=== PATIENT | female | born 1970 | race African-American/Black ===

== ENCOUNTER 2019-04-03 15:07 | Inpatient (IN) | payer OTHER ==
--- NOTE | 2019-04-03 16:04 | BHS.RME ---
Substance Use & Tx History - Substance Use History Alcohol Substance amount: 2 liters Gin, beer 24 oz 6 pack Frequency of use: More than 3 times per week Date of Last Use: 04/02/19 Cocaine (Crack) Substance amount: $200 Frequency of use: Daily Substance route: Smoking Date of Last Use: 03/28/19 Physical/Psych/Mental Status - Behavior Eye Contact: Normal - Cooperativeness Cooperativeness: Cooperative - Thinking Thought Processes: Tight Thought content: Future oriented - Physical Health Problems Is patient presently having any pain?: No Does patient presently have any injuries (include location): No CIWA Headache: 0-None Present (CIWA total 6)
[2019-04-03 17:03] VITALS: BMI 26.6
--- NOTE | 2019-04-03 17:45 | HP ---
CIWA Score Nausea/Vomitin-Mild Nausea/No Vomiting Muscle Tremors: None Anxiety: 1-Mildly Anxious Agitation: 1-Slight > Activity Paroxysmal Sweats: No Perspiration Orientation: 0-Oriented Tacttile Disturbances: 0-None Auditory Disturbances: 0-None Visual Disturbances: 0-None Headache: 3-Moderate CIWA-Ar Total Score: 6 - Admission Criteria OASAS Guidelines: Admission for Medically Managed Detox: Requires at least one of the followin. CIWA greater than 12 2. Seizures within the past 24 hours 3. Delirium tremens within the past 24 hours 4. Hallucinations within the past 24 hours 5. Acute intervention needed for co occurring medical disorder 6. Acute intervention needed for co occurring psychiatric disorder 7. Severe withdrawal that cannot be handled at a lower level of care (continued vomiting, continued diarrhea, abnormal vital signs) requiring intravenous medication and/or fluids 8. Patient presents the following: Acute intervention needed for co-occurring med or psych disorder (HIV +, Bipolar/Depression) Admission Criteria Met: Admission criteria met Admitting History and Physical - Past Medical History ...: No - Smoking History Smoking history: Current every day smoker Have you smoked in the past 12 months: Yes Aproximately how many cigarettes per day: 6 Admission ROS S - [facility] Chief Complaint: "Here because I'm tired of drinking" Allergies/Adverse Reactions: Allergies Allergy/AdvReac Type Severity Reaction Status Date / Time Penicillins Allergy Intermediate Hives Verified 04/03/19 16:59 History of Present Illness: 48 yo presents w/ hx alcohol and crack use disorder seeking detox. States current episode of alcohol relapse x 2 weeks daily w/ 6 pk beer w/ hard liquor alcohol. Heaviest drink this weekend. Last drink Saturday (04/01/19) Cocaine use states relapsed x a few months ago. Smokes. Last use Saturday () Nicotine use. 6 cig/day. Not interested in cessation. PMHx: HIV+ (off meds for one week); Seizure - last 6 months ago (states compliant); bronchitis; MHHx: Bipolar/ PTSD/Anxiety/Depression/Stress. Denies thoughts of harming self or others. Last saw a Provider 3 months ago. SHx: Housing: SRO; Unemployed; Denies legal issues. Search Terms: Gamaliel Meza, 1970 Search Date: 04/03/2019 06:52:23 PM The Drug Utilization Report below displays all of the controlled substance prescriptions, if any, that your patient has filled in the last twelve months. The information displayed on this report is compiled from pharmacy submissions to the Department, and accurately reflects the information as submitted by the pharmacies. This report was requested by: Adeola Juarez | Reference #: [id number] There are no results for the search terms that you entered. Exam Limitations: No Limitations - Ebola screening Have you traveled outside of the country in the last 21 days: No Have you had contact with anyone from an Ebola affected area: No Have you been sick,other than usual withdrawal symptoms: No Do you have a fever: No - Review of Systems Constitutional: Chills EENT: reports: Blurred Vision Respiratory: reports: SOB with Exertion (With stair climbing and walking a few blocks.) Cardiac: reports: No Symptoms Reported GI: reports: Blood Streaked Bowels (Intermittent last a few days ago), Nausea : reports: Incontinence (No burning, pain, blood) Musculoskeletal: reports: Joint Pain ((L) shoulder - pinched knee; Both knees - achy. "8") Integumentary: reports: No Symptoms Reported Neuro: reports: Headache ((L) nondenominational- throbbing "6-7":), Seizure Endocrine: reports: Increased Thirst Hematology: reports: Anemia (HIV+) Psychiatric: reports: Judgement Intact, Orientated x3, Agitated, Anxious, Depressed (Denies thoughts of harming self or others) Patient History - Patient Medical History Hx Asthma: Yes Hx Chronic Obstructive Pulmonary Disease (COPD): No Hx Cardiac Disorders: No Hx Hypertension: No Hx Seizures: Yes (6MNTHS) Hx Diabetes: No Hx Gastrointestinal Disorders: No Hx Genitourinary Disorders: No Hx Sexually Transmitted Disorders: Yes (HIV POS/ GENITAL WARTS) Hx Renal Disease (ESRD): No Hx Depression: Yes Hx Suicide Attempt: No Hx Schizophrenia: No - Patient Surgical History Past Surgical History: Yes Hx Neurologic Surgery: No Hx Cataract Extraction: No Hx Cardiac Surgery: No Hx Lung Surgery: No Hx Breast Surgery: No Hx Breast Biopsy: No Hx Abdominal Surgery: Yes (Hysterectomy 2003) Hx Appendectomy: No Hx Cholecystectomy: No Hx Genitourinary Surgery: No Hx Section: No Hx Orthopedic Surgery: No Anesthesia Reaction: No - PPD History Previous Implant?: Yes Documented Results: Negative w/o proof Implanted On Prior R Admission?: No PPD to be Administered?: Yes - Reproductive History Patient is a Female of Child Bearing Age (11 -55 yrs old): Yes Last Menstrual Period: 02/11/03 (Hystercetony) Patient : No - Smoking Cessation Smoking history: Current every day smoker Have you smoked in the past 12 months: Yes Aproximately how many cigarettes per day: 6 Hx Chewing Tobacco Use: No Initiated information on smoking cessation: Yes 'Breaking Loose' booklet given: 04/03/19 - Substance & Tx. History Hx Alcohol Use: Yes Hx Substance Use: Yes Substance Use Type: Alcohol, Cocaine Hx Substance Use Treatment: Yes (detox, rehab, ) - Substances abused Alcohol Substance route: Oral Frequency: Daily Amount used: vodka- 1 gal/ beer- 6pk 24oz can Age of first use: 14 Date of last use: 04/02/19 Crack Substance route: Smoking Frequency: Daily Amount used: $200 Age of first use: 26 Date of last use: 04/01/19 Admission Physical Exam BHS - Vital Signs Vital Signs: Vital Signs - 24 hr 04/03/19 17:00 Temperature 97.6 F Pulse Rate 70 Respiratory 18 Rate Blood Pressure 124/79 - Physical General Appearance: Yes: Nourished, Mild Distress, Anxious HEENTM: Yes: Hearing grossly Normal, Normocephalic, Normal Voice, ALBERT, Pharynx Normal, Other (Dry mucous membranes) Respiratory: Yes: Lungs Clear, Normal Breath Sounds, No Respiratory Distress Neck: Yes: No masses,lesions,Nodules, Supple Breast: Yes: Breast Exam Deferred Cardiology: Yes: Regular Rhythm, Regular Rate, S1, S2 Abdominal: Yes: Normal Bowel Sounds, Non Tender, Soft Genitourinary: Yes: Incontinient Back: Yes: Normal Inspection Musculoskeletal: Yes: full range of Motion, Gait Steady Extremities: Yes: Normal Capillary Refill (Periph pulses +) Neurological: Yes: vendor management consultant II-XII NML intact, Fully Oriented, Alert, Motor Strength 5/5, Normal Mood/Affect Integumentary: Yes: Normal Color, Dry (Devreased skin turgor), Warm Lymphatic: Yes: Within Normal Limits - Diagnostic (1) Alcohol dependence with withdrawal, uncomplicated Current Visit: Yes Status: Acute (2) Cocaine dependence, uncomplicated Current Visit: Yes Status: Chronic (3) HIV (human immunodeficiency virus infection) Current Visit: Yes Status: Chronic Qualifiers: HIV symptom status: unspecified Qualified Code(s): B20 - Human immunodeficiency virus [HIV] disease (4) Seizure Current Visit: Yes Status: Chronic (5) Dehydration symptoms Current Visit: Yes Status: Acute (6) Nicotine dependence, unspecified, uncomplicated Current Visit: Yes Status: Chronic Qualifiers: Nicotine product type: cigarettes Qualified Code(s): F17.210 - Nicotine dependence, cigarettes, uncomplicated (7) Hx of bronchitis Current Visit: No Status: Chronic Cleared for Admission S - Detox or Rehab [facility] Level of Care: Medically Managed Detox Regimen/Protocol: Librium Claeared for Rehab Admission: No Breathalyzer - Breathalyzer Breathalyzer: 0 Urine Drug Screen - Test Device Lot number: [id number] Expiration date: 01/10/21 - Control Is test valid?: Yes - Results Drug screen NEGATIVE: No Urine drug screen results: RUDY-Cocaine Inpatient Rehab Admission - Rehab Decision to Admit Inpatient rehab admission?: No
[2019-04-03] MEDS ORDERED: BISMUTH SUBSALICYLATE 524 MG/30 ML UD PO PRN (19:27)
[2019-04-03] MEDS ORDERED: MAGNESIUM CITRATE 300 ML BOTTLE PO PRN (19:27)
[2019-04-03] MEDS ORDERED: MENTHOL/PHENOL 1 EACH UD MM PRN (19:27)
[2019-04-03] MEDS ORDERED: IBUPROFEN 400 MG TABLET (FP) PO PRN (19:27)
[2019-04-03] MEDS ORDERED: MAGNESIUM HYDROX 2400MG/30ML ORAL SUSPENSION 30 ML CUP PO PRN (19:27)
[2019-04-03] MEDS ORDERED: ACETAMINOPHEN 325 MG TABLET (FP) PO PRN ×2 (19:27)
[2019-04-03] MEDS ORDERED: METHOCARBAMOL 500 MG TABLET PO PRN (19:27)
[2019-04-03] MEDS ORDERED: NICOTINE POLACRILEX 2 MG GUM BUC PRN (19:27)
[2019-04-03] MEDS ORDERED: MAG HYDROX/AL HYDROX/SIMETH 30 ML UNIT-DOSE CUP PO PRN (19:27)
[2019-04-03] MEDS ORDERED: chlordiazePOXIDE HCL 10 MG CAPSULE PO PRN (19:32)
[2019-04-03] MEDS ORDERED: chlordiazePOXIDE 5 MG CAPSULE PO PRN ×3 (19:54→20:01)
[2019-04-03] MEDS ORDERED: chlordiazePOXIDE HCL 10 MG CAPSULE PO SCH (20:00)
[2019-04-03] MEDS: THIAMINE HCL 100 MG TABLET (FP) PO SCH (21:13)
[2019-04-03] MEDS: MELATONIN 5 MG TABLETS PO PRN (21:35)
[2019-04-03] MEDS ORDERED: chlordiazePOXIDE 5 MG CAPSULE PO SCH (22:00)
[2019-04-03] MEDS ORDERED: chlordiazePOXIDE 5 MG CAPSULE PO ONE (22:00)
[2019-04-03] MEDS: OXCARBAZEPINE 300 MG PO SCH (23:02)
[2019-04-03] MEDS: LEVETIRACETAM 500 MG PO SCH (23:02)
[2019-04-04] MEDS ORDERED: chlordiazePOXIDE HCL 25 MG CAPSULE PO SCH (05:00)
[2019-04-04] MEDS: chlordiazePOXIDE HCL 10 MG CAPSULE PO SCH ×3 (06:28→22:24)
[2019-04-04 09:39] LABS: HEMOGLOBIN 13.5 GM/dL (10.7-15.3); MCH 33.6 pg (25.7-33.7); MCHC 35.4 g/dl (32.0-36.0); MEAN CELL VOLUME 94.9 fl (80-96); MEAN PLT VOLUME 8.1 fl (7.5-11.1); PLATELET COUNT 224 K/MM3 (134-434); RBC 4.01 M/mm3 (3.60-5.2); RDW 13.1 % (11.6-15.6); WHITE BLOOD COUNT 4.6 K/mm3 (4.0-10.0)
[2019-04-04 09:48] LABS: ALBUMIN 3.3 g/dl (3.4-5.0); BILIRUBIN,TOTAL 0.4 mg/dL (0.2-1); BLOOD UREA NITROGEN 12.7 mg/dL (7-18); CALCIUM 8.9 mg/dL (8.5-10.1); CREATININE 0.8 mg/dL (0.55-1.3); POTASSIUM 3.8 mmol/L (3.5-5.1); TOT PROT 7.7 g/dl (6.4-8.2)
[2019-04-04] MEDS: OXCARBAZEPINE 300 MG PO SCH ×2 (10:33→22:23)
[2019-04-04] MEDS: NICOTINE 7 MG/24 HOURS TOPICAL PATCH TD SCH (10:33)
[2019-04-04] MEDS: PRENATAL VITAMINS W/ FOLIC ACID TABLET (FP) PO SCH (10:33)
[2019-04-04] MEDS: LEVETIRACETAM 500 MG PO SCH ×2 (10:33→22:24)
--- NOTE | 2019-04-04 10:35 | EKG ---
Test Reason : Blood Pressure : / mmHG Vent. Rate : 066 BPM Atrial Rate : 066 BPM P-R Int : 158 ms QRS Dur : 072 ms QT Int : 376 ms P-R-T Axes : 042 050 041 degrees QTc Int : 394 ms NORMAL SINUS RHYTHM NORMAL ECG NO PREVIOUS ECGS AVAILABLE Confirmed by ALLAN MORTENSEN MD ([id number]) on 04/04/2019 10:35:44 AM Referred By: Confirmed By:ALLAN MORTENSEN MD
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
--- NOTE | 2019-04-04 14:43 | PN ---
S CIWA - CIWA Score Nausea/Vomitin-No Nausea/No Vomiting Muscle Tremors: None Anxiety: 3 Agitation: 2 Paroxysmal Sweats: 3 Orientation: 0-Oriented Tacttile Disturbances: 0-None Auditory Disturbances: 0-None Visual Disturbances: 0-None Headache: 0-None Present CIWA-Ar Total Score: 8 BHS Progress Note (SOAP) Subjective: Anxious, Interrupted Sleep, Sweating, Poor Appetite. Objective: PATIENT A & O X 3, OBSERVED AMBULATING ON DETOX UNIT UNASSISTED. IN NO ACUTE DISTRESS. 04/04/19 14:39 Vital Signs Temperature 98.0 F 04/04/19 12:35 Pulse Rate 70 04/04/19 12:35 Respiratory Rate 16 04/04/19 12:35 Blood Pressure 115/70 04/04/19 12:35 O2 Sat by Pulse Oximetry (%) Laboratory Tests 04/04/19 04/04/19 04/04/19 07:00 07:00 07:00 WBC 4.6 RBC 4.01 Hgb 13.5 Hct 38.0 MCV 94.9 MCH 33.6 MCHC 35.4 RDW 13.1 Plt Count 224 MPV 8.1 Sodium 138 Potassium 3.8 Chloride 111 H Carbon Dioxide 24 Anion Gap 4 L BUN 12.7 Creatinine 0.8 Est GFR (CKD-EPI)AfAm 100.33 Est GFR (CKD-EPI)NonAf 86.57 Random Glucose 111 H Calcium 8.9 Total Bilirubin 0.4 AST 21 ALT 24 Alkaline Phosphatase 90 Total Protein 7.7 Albumin 3.3 L RPR Titer Nonreactive LABS NOTED. LEVETIRACETAM LEVEL PENDING. 04/04/19 14:40 Assessment: 04/04/19 14:40 WITHDRAWAL SYMPTOMS. Plan: CONTINUE DETOX. INCREASE DAILY ORAL WATER INTAKE. ENSURE ORDERED FOR CALORIC SUPPLEMENTATION.
[2019-04-04] MEDS ORDERED: hydrOXYzine PAMOATE 50 MG CAPSULE (FP) PO PRN ×2 (15:00→18:20)
[2019-04-04] MEDS: busPIRone HCL 10 MG TABLET (FP) PO SCH (22:24)
[2019-04-04] MEDS: THIAMINE HCL 100 MG TABLET (FP) PO SCH (22:24)
[2019-04-04] MEDS: QUEtiapine FUMARATE 200 MG TABLET PO SCH (22:24)
[2019-04-04] MEDS: DIVALPROEX SODIUM 250 MG TABLET E.C. PO SCH (22:25)
[2019-04-05] MEDS ORDERED: chlordiazePOXIDE 5 MG CAPSULE PO SCH (05:00)
[2019-04-05] MEDS: chlordiazePOXIDE 5 MG CAPSULE PO SCH ×3 (07:03→22:23)
[2019-04-05] MEDS: SERTRALINE HCL 50 MG TABLET (FP) PO SCH (13:54)
[2019-04-05] MEDS: busPIRone HCL 10 MG TABLET (FP) PO SCH ×2 (13:54→22:23)
[2019-04-05] MEDS: PRENATAL VITAMINS W/ FOLIC ACID TABLET (FP) PO SCH (13:54)
[2019-04-05] MEDS: OXCARBAZEPINE 300 MG PO SCH ×2 (13:55→22:23)
[2019-04-05] MEDS: NICOTINE 7 MG/24 HOURS TOPICAL PATCH TD SCH (13:56)
[2019-04-05] MEDS: LEVETIRACETAM 500 MG PO SCH ×2 (14:17→22:23)
[2019-04-05] MEDS: DIVALPROEX SODIUM 250 MG TABLET E.C. PO SCH ×2 (14:17→22:23)
--- NOTE | 2019-04-05 16:46 | PN ---
S CIWA - CIWA Score Nausea/Vomitin-No Nausea/No Vomiting Muscle Tremors: 2 Anxiety: 2 Agitation: 1-Slight > Activity Paroxysmal Sweats: 2 Orientation: 0-Oriented Tacttile Disturbances: 0-None Auditory Disturbances: 0-None Visual Disturbances: 0-None Headache: 0-None Present CIWA-Ar Total Score: 7 BHS Progress Note (SOAP) Subjective: Agitated, irritable Objective: 04/05/19 16:45 Last Vital Signs Temp Pulse Resp BP Pulse Ox 97.2 F L 78 18 112/64 04/05/19 12:36 04/05/19 12:36 04/05/19 12:36 04/05/19 12:36 Laboratory Tests 04/04/19 04/04/19 04/04/19 07:00 07:00 07:00 WBC 4.6 RBC 4.01 Hgb 13.5 Hct 38.0 MCV 94.9 MCH 33.6 MCHC 35.4 RDW 13.1 Plt Count 224 MPV 8.1 Sodium 138 Potassium 3.8 Chloride 111 H Carbon Dioxide 24 Anion Gap 4 L BUN 12.7 Creatinine 0.8 Est GFR (CKD-EPI)AfAm 100.33 Est GFR (CKD-EPI)NonAf 86.57 Random Glucose 111 H Calcium 8.9 Total Bilirubin 0.4 AST 21 ALT 24 Alkaline Phosphatase 90 Total Protein 7.7 Albumin 3.3 L Valproic Acid RPR Titer Nonreactive 04/05/19 05:40 WBC RBC Hgb Hct MCV MCH MCHC RDW Plt Count MPV Sodium Potassium Chloride Carbon Dioxide Anion Gap BUN Creatinine Est GFR (CKD-EPI)AfAm Est GFR (CKD-EPI)NonAf Random Glucose Calcium Total Bilirubin AST ALT Alkaline Phosphatase Total Protein Albumin Valproic Acid < 3.0 L RPR Titer Labs reviewed Assessment: 04/05/19 16:46 Withdrawal sxs Plan: Continue detox Encouraged PO water intake
[2019-04-05] MEDS: THIAMINE HCL 100 MG TABLET (FP) PO SCH (22:23)
[2019-04-05] MEDS: QUEtiapine FUMARATE 200 MG TABLET PO SCH (22:23)
[2019-04-06] MEDS ORDERED: chlordiazePOXIDE HCL 10 MG CAPSULE PO PRN
[2019-04-06] MEDS ORDERED: chlordiazePOXIDE HCL 10 MG CAPSULE PO SCH ×2 (10:00→22:00)
--- NOTE | 2019-04-06 10:52 | PN ---
S CIWA - CIWA Score Nausea/Vomitin-Mild Nausea/No Vomiting Muscle Tremors: 2 Anxiety: 1-Mildly Anxious Agitation: 1-Slight > Activity Paroxysmal Sweats: No Perspiration Orientation: 0-Oriented Tacttile Disturbances: 0-None Auditory Disturbances: 0-None Visual Disturbances: 0-None Headache: 1-Very Mild CIWA-Ar Total Score: 6 BHS Progress Note (SOAP) Subjective: pt admitted for alcohol detox- anticipate d/c tomorrow- would like to go to rehab h/o seizure d/o- low valproic acid level- pt was probably non compliant prior to admission, also on Keppra O: Vital Signs - 24 hr 04/05/19 04/05/19 04/05/19 12:36 17:05 20:46 Temperature 97.2 F L 97.7 F 97.5 F L Pulse Rate 78 78 68 Respiratory 18 18 18 Rate Blood Pressure 112/64 128/86 118/51 L 04/05/19 04/06/19 04/06/19 22:00 00:32 03:31 Temperature 98.8 F Pulse Rate 69 Respiratory 18 18 18 Rate Blood Pressure 102/50 L 04/06/19 06:41 Temperature Pulse Rate Respiratory 18 Rate Blood Pressure Laboratory Tests 04/03/19 04/04/19 04/04/19 17:01 07:00 07:00 WBC 4.6 RBC 4.01 Hgb 13.5 Hct 38.0 MCV 94.9 MCH 33.6 MCHC 35.4 RDW 13.1 Plt Count 224 MPV 8.1 Sodium 138 Potassium 3.8 Chloride 111 H Carbon Dioxide 24 Anion Gap 4 L BUN 12.7 Creatinine 0.8 Est GFR (CKD-EPI)AfAm 100.33 Est GFR (CKD-EPI)NonAf 86.57 Random Glucose 111 H Calcium 8.9 Total Bilirubin 0.4 AST 21 ALT 24 Alkaline Phosphatase 90 Total Protein 7.7 Albumin 3.3 L POC Urine HCG, Qual Negative Valproic Acid RPR Titer 04/04/19 04/05/19 07:00 05:40 WBC RBC Hgb Hct MCV MCH MCHC RDW Plt Count MPV Sodium Potassium Chloride Carbon Dioxide Anion Gap BUN Creatinine Est GFR (CKD-EPI)AfAm Est GFR (CKD-EPI)NonAf Random Glucose Calcium Total Bilirubin AST ALT Alkaline Phosphatase Total Protein Albumin POC Urine HCG, Qual Valproic Acid < 3.0 L RPR Titer Nonreactive a/p: continue alcohol detox- anticipate discharge tomorrow- would like to go to rehab here tomorrow pt has a PCP- has an appointment next month. If pt is discharged home may need meds to be sent to pharmacy continue seizure meds h/o HIV- not taking meds prior to admission here
[2019-04-06] MEDS: DIVALPROEX SODIUM 250 MG TABLET E.C. PO SCH ×2 (10:55→22:02)
[2019-04-06] MEDS: NICOTINE 7 MG/24 HOURS TOPICAL PATCH TD SCH (10:55)
[2019-04-06] MEDS: OXCARBAZEPINE 300 MG PO SCH ×2 (10:55→22:02)
[2019-04-06] MEDS: LEVETIRACETAM 500 MG PO SCH ×2 (10:55→22:02)
[2019-04-06] MEDS: PRENATAL VITAMINS W/ FOLIC ACID TABLET (FP) PO SCH (10:55)
[2019-04-06] MEDS: busPIRone HCL 10 MG TABLET (FP) PO SCH ×2 (10:55→22:02)
[2019-04-06] MEDS: SERTRALINE HCL 50 MG TABLET (FP) PO SCH (10:55)
[2019-04-06] MEDS: chlordiazePOXIDE 5 MG CAPSULE PO SCH ×2 (10:57→22:02)
[2019-04-06] MEDS ORDERED: chlordiazePOXIDE 5 MG CAPSULE PO PRN (20:02)
[2019-04-06] MEDS: MELATONIN 5 MG TABLETS PO PRN (22:02)
[2019-04-06] MEDS: QUEtiapine FUMARATE 200 MG TABLET PO SCH (22:02)
[2019-04-06] MEDS: THIAMINE HCL 100 MG TABLET (FP) PO SCH (22:02)
[2019-04-07] MEDS ORDERED: chlordiazePOXIDE 5 MG CAPSULE PO ONE (05:00)
[2019-04-07 09:52] VITALS: BP 100/63; PULSE 87; TEMP 95.9
--- NOTE | 2019-04-07 10:01 | PN ---
[facility] CIWA - CIWA Score Nausea/Vomitin-No Nausea/No Vomiting Muscle Tremors: None Anxiety: 1-Mildly Anxious Agitation: 0-Normal Activity Paroxysmal Sweats: No Perspiration Orientation: 0-Oriented Tacttile Disturbances: 0-None Auditory Disturbances: 0-None Visual Disturbances: 0-None Headache: 0-None Present CIWA-Ar Total Score: 1 S Progress Note (SOAP) Subjective: alert,no complaint Objective: 04/07/19 09:59 alert,no complaint 04/07/19 09:59 Vital Signs Temperature 95.9 F L 04/07/19 08:58 Pulse Rate 87 04/07/19 08:58 Respiratory Rate 16 04/07/19 08:58 Blood Pressure 100/63 04/07/19 08:58 O2 Sat by Pulse Oximetry (%) Assessment: 04/07/19 10:00 detox completed,no withdrawal symptom Plan: stable for discharge,follow up with after care prgram as arrangement
--- NOTE | 2019-04-07 10:05 | DS ---
[facility] Detox Discharge Summary Admission Date: 04/03/19 Discharge Date: 04/07/19 - History Present History: Alcohol Dependence, Cocaine Dependence Additional Comments: alert,oriented x 3 heart normal hert sound,s1s2 lung clear no abdominal pain ambulation on the unit stable for discharge follow up with after care program as arrangement and medical provider time spending on discharge 30 mins Pertinent Past History: seizure hiv - Physical Exam Results Vital Signs: Vital Signs Temperature 95.9 F L 04/07/19 08:58 Pulse Rate 87 04/07/19 08:58 Respiratory Rate 16 04/07/19 08:58 Blood Pressure 100/63 04/07/19 08:58 O2 Sat by Pulse Oximetry (%) Pertinent Admission Physical Exam Findings: withdrawal sins and symptom Laboratory Last Values WBC 4.6 K/mm3 (4.0-10.0) 04/04/19 07:00 RBC 4.01 M/mm3 (3.60-5.2) 04/04/19 07:00 Hgb 13.5 GM/dL (10.7-15.3) 04/04/19 07:00 Hct 38.0 % (32.4-45.2) 04/04/19 07:00 MCV 94.9 fl (80-96) 04/04/19 07:00 MCH 33.6 pg (25.7-33.7) 04/04/19 07:00 MCHC 35.4 g/dl (32.0-36.0) 04/04/19 07:00 RDW 13.1 % (11.6-15.6) 04/04/19 07:00 Plt Count 224 K/MM3 (134-434) 04/04/19 07:00 MPV 8.1 fl (7.5-11.1) 04/04/19 07:00 Sodium 138 mmol/L (136-145) 04/04/19 07:00 Potassium 3.8 mmol/L (3.5-5.1) 04/04/19 07:00 Chloride 111 mmol/L (98-107) H 04/04/19 07:00 Carbon Dioxide 24 mmol/L (21-32) 04/04/19 07:00 Anion Gap 4 MMOL/L (8-16) L 04/04/19 07:00 BUN 12.7 mg/dL (7-18) 04/04/19 07:00 Creatinine 0.8 mg/dL (0.55-1.3) 04/04/19 07:00 Est GFR (CKD-EPI)AfAm 100.33 04/04/19 07:00 Est GFR (CKD-EPI)NonAf 86.57 04/04/19 07:00 Random Glucose 111 mg/dL (74-106) H 04/04/19 07:00 Calcium 8.9 mg/dL (8.5-10.1) 04/04/19 07:00 Total Bilirubin 0.4 mg/dL (0.2-1) 04/04/19 07:00 AST 21 U/L (15-37) 04/04/19 07:00 ALT 24 U/L (13-61) 04/04/19 07:00 Alkaline Phosphatase 90 U/L (45-117) 04/04/19 07:00 Total Protein 7.7 g/dl (6.4-8.2) 04/04/19 07:00 Albumin 3.3 g/dl (3.4-5.0) L 04/04/19 07:00 POC Urine HCG, Qual Negative 04/03/19 17:01 Valproic Acid < 3.0 ug/mL (50-100) L 04/05/19 05:40 Oxcarbazepine 5 ug/mL (10-35) L 04/04/19 07:00 Levetiracetam 7.7 MCG/ML (10.0-40.0) L 04/04/19 07:00 RPR Titer Nonreactive (NONREACTIVE) 04/04/19 07:00 Vital Signs Temperature 95.9 F L 04/07/19 08:58 Pulse Rate 87 04/07/19 08:58 Respiratory Rate 16 04/07/19 08:58 Blood Pressure 100/63 04/07/19 08:58 O2 Sat by Pulse Oximetry (%) - Treatment Hospital Course: Detox Protocol Followed, Detoxed Safely, Responded well, Discharged Condition Good Patient has Accepted a Rehab Referral to: declined - Medication Discharge Medications: Ambulatory Orders Bictegrav/Emtricit/Tenofov Ala [Biktarvy 50-200-25 mg Tablet] 1 each PO DAILY Buspirone HCl [Buspar -] 10 mg PO BID 04/03/19 Divalproex *ER* [Depakote *ER* -] 500 mg PO BID 04/03/19 Gabapentin 800 mg PO TID 04/03/19 Hydroxyzine HCl 100 mg PO DAILY PRN 04/03/19 Levetiracetam 500 mg PO BID 04/03/19 Mirtazapine [Remeron -] 30 mg PO HS 04/03/19 Oxcarbazepine [Trileptal] 300 mg PO BID 04/03/19 Quetiapine Fumarate [Seroquel -] 200 mg PO HS 04/03/19 Sertraline HCl [Zoloft] 100 mg PO DAILY 04/03/19 Valacyclovir HCl [Valtrex -] 1,000 mg PO DAILY 04/03/19 Divalproex Sodium [Depakote] 500 mg PO BID 04/04/19 - Diagnosis (1) Alcohol dependence with withdrawal, uncomplicated Current Visit: Yes Status: Acute (2) Bipolar disorder Current Visit: Yes Status: Chronic (3) Cocaine dependence, uncomplicated Current Visit: Yes Status: Chronic (4) HIV (human immunodeficiency virus infection) Current Visit: Yes Status: Chronic Qualifiers: HIV symptom status: unspecified Qualified Code(s): B20 - Human immunodeficiency virus [HIV] disease (5) Nicotine dependence, unspecified, uncomplicated Current Visit: Yes Status: Chronic Qualifiers: Nicotine product type: cigarettes Qualified Code(s): F17.210 - Nicotine dependence, cigarettes, uncomplicated (6) Seizure Current Visit: Yes Status: Chronic - AMA Did Patient Leave Against Medical Advice: No
== END 2019-04-07 09:53 | disposition home or self-care (01) | DRG 774 ==
LOC: YASAS 15:07 → Y6N 19:26
PROVIDERS: ADMIT Allergy & Immunology; ATTEND Allergy & Immunology
PROC: HZ2ZZZZ Detoxification Services for Substance Abuse Treatment (ICD-10-PCS; principal; 2019-04-03)
DX: F10.230 Alcohol dependence with withdrawal, uncomplicated (principal); F14.20 Cocaine dependence, uncomplicated; F17.210 Nicotine dependence, cigarettes, uncomplicated; F19.282 Other psychoactive substance dependence with psychoactive substance-induced sleep disorder; F19.24 Other psychoactive substance dependence with psychoactive substance-induced mood disorder; F31.9 Bipolar disorder, unspecified; F41.9 Anxiety disorder, unspecified; F43.10 Post-traumatic stress disorder, unspecified; Z21 Asymptomatic human immunodeficiency virus [HIV] infection status; G40.909 Epilepsy, unspecified, not intractable, without status epilepticus; E86.0 Dehydration; J45.909 Unspecified asthma, uncomplicated; B07.9 Viral wart, unspecified; A63.0 Anogenital (venereal) warts; Z87.09 Personal history of other diseases of the respiratory system; Z91.410 Personal history of adult physical and sexual abuse; Z90.710 Acquired absence of both cervix and uterus; Z88.0 Allergy status to penicillin
CPT/HCPCS: 36415; 80053; 80164; 80177; 80183; 81025; 85027; 86593; 93005; 93010

== ENCOUNTER 2020-04-22 17:53 | Inpatient (IN) | payer OTHER ==
[2020-04-22 18:29] VITALS: BMI 22.2
[2020-04-22] MEDS ORDERED: diazePAM 5 MG TABLET PO PRN (21:43)
[2020-04-22] MEDS ORDERED: ACETAMINOPHEN 325 MG TABLET (FP) PO PRN ×2 (21:44)
[2020-04-22] MEDS ORDERED: MAGNESIUM CITRATE 300 ML BOTTLE PO PRN (21:44)
[2020-04-22] MEDS ORDERED: BISMUTH SUBSALICYLATE 524 MG/30 ML UD PO PRN (21:44)
[2020-04-22] MEDS ORDERED: hydrOXYzine PAMOATE 25 MG CAPSULE (FP) PO PRN (21:44)
[2020-04-22] MEDS ORDERED: MENTHOL/PHENOL 1 EACH UD MM PRN (21:44)
[2020-04-22] MEDS ORDERED: MAGNESIUM HYDROX 2400MG/30ML ORAL SUSPENSION 30 ML CUP PO PRN (21:44)
[2020-04-22] MEDS ORDERED: IBUPROFEN 400 MG TABLET (FP) PO PRN (21:44)
[2020-04-22] MEDS ORDERED: NICOTINE POLACRILEX 2 MG GUM BUC PRN (21:44)
[2020-04-22] MEDS ORDERED: ONDANSETRON *ODT* 4 MG TABLET SL PRN (21:44)
[2020-04-22] MEDS ORDERED: METHOCARBAMOL 500 MG TABLET PO PRN (21:44)
[2020-04-22] MEDS ORDERED: MAG HYDROX/AL HYDROX/SIMETH 30 ML UNIT-DOSE CUP PO PRN (21:44)
[2020-04-22] MEDS ORDERED: LACTULOSE 20 GM/30 ML UDC (FOR ORAL USE ONLY) PO SCH (22:00)
[2020-04-22] MEDS ORDERED: PATIENT'S OWN MEDICATION (NON-FORMULARY) (Bictegrav/Emtricit/Tenofov Ala 1 EACH Tablet) PO SCH (22:00)
[2020-04-23] MEDS: MELATONIN 5 MG TABLETS PO SCH ×2 (00:49→22:34)
[2020-04-23] MEDS: DIVALPROEX SODIUM 250 MG TABLET E.C. PO SCH ×3 (00:50→22:34)
[2020-04-23] MEDS: THIAMINE HCL 100 MG TABLET (FP) PO SCH ×2 (00:50→22:34)
[2020-04-23] MEDS: levETIRAcetam 500 MG TABLET (FP) PO SCH ×3 (00:51→22:34)
[2020-04-23] MEDS: diazePAM 5 MG TABLET PO SCH ×5 (00:51→22:34)
[2020-04-23] MEDS: GABAPENTIN 400 MG CAPSULE PO SCH ×4 (00:53→22:35)
[2020-04-23 10:46] LABS: HEMATOCRIT 34.8 % (32.4-45.2); HEMOGLOBIN 12.4 GM/dL (10.7-15.3); MCH 34.6 pg (25.7-33.7); MCHC 35.8 g/dl (32.0-36.0); MEAN CELL VOLUME 96.8 fl (80-96); MEAN PLT VOLUME 7.3 fl (7.5-11.1); PLATELET COUNT 342 K/MM3 (134-434); RDW 13.2 % (11.6-15.6); WHITE BLOOD COUNT 8.3 K/mm3 (4.0-10.0)
[2020-04-23] MEDS: PRENATAL VITAMINS W/ FOLIC ACID TABLET (FP) PO SCH (11:06)
[2020-04-23 11:28] LABS: ALBUMIN 2.6 g/dl (3.4-5.0); CALCIUM 8.5 mg/dL (8.5-10.1)
[2020-04-23 11:29] LABS: BLOOD UREA NITROGEN 21.2 mg/dL (7-18)
[2020-04-23 11:31] LABS: CREATININE 0.8 mg/dL (0.55-1.3)
[2020-04-23 11:32] LABS: BILIRUBIN,TOTAL 0.5 mg/dL (0.2-1)
[2020-04-23 11:33] LABS: TOT PROT 6.7 g/dl (6.4-8.2)
[2020-04-23] MEDS: BICTEGRAV/EMTRICIT/TENOFOV (BIKTARVY) 50-200-25 MG TABLET PO SCH (14:18)
[2020-04-23] MEDS: FLUTICASONE PROP 0.05% 16 GM NASAL SPRAY NS SCH (14:18)
[2020-04-24] MEDS: diazePAM 5 MG TABLET PO SCH ×3 (05:46→22:51)
[2020-04-24] MEDS: GABAPENTIN 400 MG CAPSULE PO SCH ×3 (06:58→22:49)
[2020-04-24] MEDS: DIVALPROEX SODIUM 250 MG TABLET E.C. PO SCH ×2 (11:10→22:50)
[2020-04-24] MEDS: levETIRAcetam 500 MG TABLET (FP) PO SCH ×2 (11:10→22:49)
[2020-04-24] MEDS: FLUTICASONE PROP 0.05% 16 GM NASAL SPRAY NS SCH (11:10)
[2020-04-24] MEDS: PRENATAL VITAMINS W/ FOLIC ACID TABLET (FP) PO SCH (11:10)
[2020-04-24] MEDS: BICTEGRAV/EMTRICIT/TENOFOV (BIKTARVY) 50-200-25 MG TABLET PO SCH (11:10)
[2020-04-24] MEDS: busPIRone HCL 10 MG TABLET (FP) PO SCH (22:49)
[2020-04-24] MEDS: MELATONIN 5 MG TABLETS PO SCH (22:49)
[2020-04-24] MEDS: QUEtiapine FUMARATE 50 MG TABLET PO SCH (22:49)
[2020-04-24] MEDS: THIAMINE HCL 100 MG TABLET (FP) PO SCH (22:54)
[2020-04-25] MEDS: diazePAM 5 MG TABLET PO SCH ×2 (06:46→18:46)
[2020-04-25] MEDS: GABAPENTIN 400 MG CAPSULE PO SCH ×3 (06:46→22:40)
[2020-04-25] MEDS: FLUTICASONE PROP 0.05% 16 GM NASAL SPRAY NS SCH (10:17)
[2020-04-25] MEDS: DIVALPROEX SODIUM 250 MG TABLET E.C. PO SCH ×2 (10:18→22:40)
[2020-04-25] MEDS: levETIRAcetam 500 MG TABLET (FP) PO SCH ×2 (10:19→22:40)
[2020-04-25] MEDS: BICTEGRAV/EMTRICIT/TENOFOV (BIKTARVY) 50-200-25 MG TABLET PO SCH (10:19)
[2020-04-25] MEDS: busPIRone HCL 10 MG TABLET (FP) PO SCH ×3 (11:06→22:41)
[2020-04-25] MEDS: PRENATAL VITAMINS W/ FOLIC ACID TABLET (FP) PO SCH (11:06)
[2020-04-25] MEDS: CLOTRIMAZOLE 1% CREAM 15 GM TUBE TP PRN (19:41)
[2020-04-25] MEDS: QUEtiapine FUMARATE 50 MG TABLET PO SCH (22:40)
[2020-04-25] MEDS: THIAMINE HCL 100 MG TABLET (FP) PO SCH (22:41)
[2020-04-25] MEDS: MELATONIN 5 MG TABLETS PO SCH (23:31)
[2020-04-26] MEDS ORDERED: diazePAM 5 MG TABLET PO ONE (06:00)
[2020-04-26] MEDS: GABAPENTIN 400 MG CAPSULE PO SCH ×2 (06:42→13:35)
[2020-04-26] MEDS: CLOTRIMAZOLE 1% CREAM 15 GM TUBE TP PRN (06:44)
[2020-04-26] MEDS: DIVALPROEX SODIUM 250 MG TABLET E.C. PO SCH (09:57)
[2020-04-26] MEDS: PRENATAL VITAMINS W/ FOLIC ACID TABLET (FP) PO SCH (09:57)
[2020-04-26] MEDS: levETIRAcetam 500 MG TABLET (FP) PO SCH (09:58)
[2020-04-26] MEDS: busPIRone HCL 10 MG TABLET (FP) PO SCH (09:58)
[2020-04-26] MEDS: BICTEGRAV/EMTRICIT/TENOFOV (BIKTARVY) 50-200-25 MG TABLET PO SCH (09:58)
[2020-04-26] MEDS: FLUTICASONE PROP 0.05% 16 GM NASAL SPRAY NS SCH (09:59)
[2020-04-26 14:12] VITALS: BP 103/63; PULSE 82; TEMP 97.5
== END 2020-04-26 15:16 | disposition other institution (70) | DRG 775 ==
LOC: YASAS 17:53 → Y6N 23:39
PROVIDERS: ADMIT Allergy & Immunology; ATTEND Allergy & Immunology
PROC: HZ2ZZZZ Detoxification Services for Substance Abuse Treatment (ICD-10-PCS; principal; 2020-04-22)
DX: F10.230 Alcohol dependence with withdrawal, uncomplicated (principal); F17.210 Nicotine dependence, cigarettes, uncomplicated; F19.282 Other psychoactive substance dependence with psychoactive substance-induced sleep disorder; F19.24 Other psychoactive substance dependence with psychoactive substance-induced mood disorder; F31.81 Bipolar II disorder; F43.10 Post-traumatic stress disorder, unspecified; Z21 Asymptomatic human immunodeficiency virus [HIV] infection status; G40.909 Epilepsy, unspecified, not intractable, without status epilepticus; J45.909 Unspecified asthma, uncomplicated; Z62.810 Personal history of physical and sexual abuse in childhood; Z91.410 Personal history of adult physical and sexual abuse; Z88.0 Allergy status to penicillin
CPT/HCPCS: 36415; 80053; 80164; 81025; 85027; 86780; C9803; U0003

== ENCOUNTER 2020-04-26 15:47 | Inpatient (IN) | payer OTHER ==
[2020-04-26] MEDS ORDERED: hydrOXYzine PAMOATE 25 MG CAPSULE (FP) PO PRN (16:50)
[2020-04-26] MEDS ORDERED: MAGNESIUM HYDROX 2400MG/30ML ORAL SUSPENSION 30 ML CUP PO PRN (16:50)
[2020-04-26] MEDS ORDERED: MAG HYDROX/AL HYDROX/SIMETH 30 ML UNIT-DOSE CUP PO PRN (16:50)
[2020-04-26] MEDS ORDERED: MENTHOL/PHENOL 1 EACH UD MM PRN (16:50)
[2020-04-26] MEDS ORDERED: LOPERAMIDE HCL 2 MG CAPSULE PO PRN (16:50)
[2020-04-26] MEDS ORDERED: ACETAMINOPHEN 325 MG TABLET (FP) PO PRN (16:50)
[2020-04-26] MEDS ORDERED: P-EPHED 60MG/TRIPROLIDI 2.5MG TABLET PO PRN (16:50)
[2020-04-26] MEDS ORDERED: IBUPROFEN 400 MG TABLET (FP) PO PRN (16:50)
[2020-04-26] MEDS ORDERED: MAGNESIUM CITRATE 300 ML BOTTLE PO PRN (16:50)
[2020-04-26] MEDS ORDERED: NICOTINE POLACRILEX 2 MG GUM BUC PRN (16:50)
[2020-04-26] MEDS ORDERED: guaiFENesin 200 MG/10 ML 10 ML UNIT-DOSE CUPS PO PRN (16:50)
[2020-04-26] MEDS: busPIRone HCL 10 MG TABLET (FP) PO SCH (21:33)
[2020-04-26] MEDS: levETIRAcetam 500 MG TABLET (FP) PO SCH (21:33)
[2020-04-26] MEDS: GABAPENTIN 400 MG CAPSULE PO SCH (21:33)
[2020-04-26] MEDS: LACTULOSE 20 GM/30 ML UDC (FOR ORAL USE ONLY) PO SCH (21:35)
[2020-04-26] MEDS ORDERED: THIAMINE HCL 100 MG TABLET (FP) PO SCH (22:00)
[2020-04-26] MEDS ORDERED: QUEtiapine FUMARATE 200 MG TABLET PO SCH (22:00)
[2020-04-26] MEDS ORDERED: MELATONIN 5 MG TABLETS PO SCH (22:00)
[2020-04-26] MEDS ORDERED: MIRTAZAPINE 30 MG TABLET PO SCH (22:00)
[2020-04-26] MEDS ORDERED: QUEtiapine FUMARATE 25 MG TABLET PO SCH (22:00)
[2020-04-26] MEDS ORDERED: DIVALPROEX SODIUM 250 MG TABLET E.C. PO SCH (22:00)
[2020-04-27] MEDS ORDERED: MASKS NR ONE (05:04)
[2020-04-27] MEDS: GABAPENTIN 400 MG CAPSULE PO SCH ×2 (07:00→13:34)
[2020-04-27] MEDS: LACTULOSE 20 GM/30 ML UDC (FOR ORAL USE ONLY) PO SCH ×2 (07:00→13:35)
[2020-04-27 07:33] VITALS: BP 117/78; PULSE 84; TEMP 97.5
[2020-04-27] MEDS ORDERED: BICTEGRAV/EMTRICIT/TENOFOV (BIKTARVY) 50-200-25 MG TABLET PO SCH (10:00)
[2020-04-27] MEDS ORDERED: FLUTICASONE PROP 0.05% 16 GM NASAL SPRAY NS SCH (10:00)
[2020-04-27] MEDS ORDERED: PRENATAL VITAMINS W/ FOLIC ACID TABLET (FP) PO SCH (10:00)
[2020-04-27] MEDS ORDERED: NICOTINE 7 MG/24 HOURS TOPICAL PATCH TD SCH (10:00)
[2020-04-27] MEDS: levETIRAcetam 500 MG TABLET (FP) PO SCH (11:03)
[2020-04-27] MEDS: busPIRone HCL 10 MG TABLET (FP) PO SCH (11:57)
[2020-04-27] MEDS ORDERED: SIMETHICONE 80 MG TAB.CHEW (FP) PO PRN (12:41)
[2020-04-27] MEDS ORDERED: HYDROCORTISONE 1% TOPICAL CREAM 30 GM TUBE TP PRN (12:42)
[2020-04-27] MEDS ORDERED: DIVALPROEX SODIUM 500 MG TABLET E.C. PO SCH (12:45)
[2020-04-27] MEDS ORDERED: COLLOIDAL OATMEAL 1 BAR EACH TP PRN (12:48)
[2020-04-27] MEDS ORDERED: TOLNAFTATE 1% CREAM 15 GM TUBE TP SCH (13:15)
[2020-04-27] MEDS ORDERED: busPIRone HCL 10 MG TABLET (FP) PO SCH (14:00)
[2020-04-27] MEDS ORDERED: QUEtiapine FUMARATE 100 MG TABLET (FP) PO SCH (22:00)
== END 2020-04-27 13:45 | disposition left against medical advice (07) | DRG 770 ==
LOC: YASAS 15:47 → Y5N 15:52
PROVIDERS: ADMIT Allergy & Immunology; ATTEND Allergy & Immunology
PROC: HZ42ZZZ Group Counseling for Substance Abuse Treatment, Cognitive-Behavioral (ICD-10-PCS; principal; 2020-04-26)
DX: F10.20 Alcohol dependence, uncomplicated (principal); F14.20 Cocaine dependence, uncomplicated; F17.210 Nicotine dependence, cigarettes, uncomplicated; F19.282 Other psychoactive substance dependence with psychoactive substance-induced sleep disorder; F19.24 Other psychoactive substance dependence with psychoactive substance-induced mood disorder; F41.1 Generalized anxiety disorder; F43.10 Post-traumatic stress disorder, unspecified; Z21 Asymptomatic human immunodeficiency virus [HIV] infection status; G40.909 Epilepsy, unspecified, not intractable, without status epilepticus

== ENCOUNTER 2020-06-04 11:35 | Inpatient (IN) | payer OTHER ==
[2020-06-04 15:48] VITALS: BMI 23.4
[2020-06-04] MEDS ORDERED: METHOCARBAMOL 500 MG TABLET PO PRN (18:47)
[2020-06-04] MEDS ORDERED: MAGNESIUM HYDROX 2400MG/30ML ORAL SUSPENSION 30 ML CUP PO PRN (18:47)
[2020-06-04] MEDS ORDERED: ACETAMINOPHEN 325 MG TABLET (FP) PO PRN ×2 (18:47)
[2020-06-04] MEDS ORDERED: MAG HYDROX/AL HYDROX/SIMETH 30 ML UNIT-DOSE CUP PO PRN (18:47)
[2020-06-04] MEDS ORDERED: BISMUTH SUBSALICYLATE 524 MG/30 ML UD PO PRN (18:47)
[2020-06-04] MEDS ORDERED: NICOTINE POLACRILEX 2 MG GUM BUC PRN (18:47)
[2020-06-04] MEDS ORDERED: MAGNESIUM CITRATE 300 ML BOTTLE PO PRN (18:47)
[2020-06-04] MEDS ORDERED: MENTHOL/PHENOL 1 EACH UD MM PRN (18:47)
[2020-06-04] MEDS ORDERED: chlordiazePOXIDE HCL 25 MG CAPSULE PO PRN (18:47)
[2020-06-04] MEDS ORDERED: ONDANSETRON *ODT* 4 MG TABLET SL PRN (18:47)
[2020-06-04] MEDS ORDERED: IBUPROFEN 400 MG TABLET (FP) PO PRN (18:47)
[2020-06-04] MEDS: levETIRAcetam 500 MG TABLET (FP) PO SCH (22:26)
[2020-06-04] MEDS: DIVALPROEX SODIUM 500 MG TABLET E.C. PO SCH (22:26)
[2020-06-04] MEDS: MELATONIN 5 MG TABLETS PO SCH (22:26)
[2020-06-04] MEDS: chlordiazePOXIDE HCL 25 MG CAPSULE PO SCH (22:27)
[2020-06-04] MEDS: THIAMINE HCL 100 MG TABLET (FP) PO SCH (22:27)
[2020-06-05] MEDS ORDERED: chlordiazePOXIDE HCL 25 MG CAPSULE ONE (05:20)
[2020-06-05] MEDS: chlordiazePOXIDE HCL 25 MG CAPSULE PO SCH ×4 (05:24→22:43)
[2020-06-05 10:34] LABS: HEMATOCRIT 36.2 % (32.4-45.2); HEMOGLOBIN 12.8 GM/dL (10.7-15.3); MCH 35.3 pg (25.7-33.7); MCHC 35.5 g/dl (32.0-36.0); MEAN CELL VOLUME 99.4 fl (80-96); MEAN PLT VOLUME 7.8 fl (7.5-11.1); PLATELET COUNT 226 K/MM3 (134-434); RBC 3.64 M/mm3 (3.60-5.2); RDW 12.7 % (11.6-15.6); WHITE BLOOD COUNT 6.2 K/mm3 (4.0-10.0)
[2020-06-05 11:01] LABS: ALBUMIN 2.8 g/dl (3.4-5.0); CALCIUM 8.6 mg/dL (8.5-10.1)
[2020-06-05 11:04] LABS: BILIRUBIN,TOTAL 0.4 mg/dL (0.2-1); CREATININE 0.7 mg/dL (0.55-1.3)
[2020-06-05] MEDS: FLUTICASONE PROP 0.05% 16 GM NASAL SPRAY NS SCH (11:58)
[2020-06-05] MEDS: levETIRAcetam 500 MG TABLET (FP) PO SCH ×2 (11:58→22:42)
[2020-06-05] MEDS: DIVALPROEX SODIUM 500 MG TABLET E.C. PO SCH ×2 (11:58→22:43)
[2020-06-05] MEDS: PRENATAL VITAMINS W/ FOLIC ACID TABLET (FP) PO SCH (11:59)
[2020-06-05] MEDS: NICOTINE 14 MG/24 HOURS TOPICAL PATCH TD SCH (11:59)
[2020-06-05] MEDS: MELATONIN 5 MG TABLETS PO SCH (22:42)
[2020-06-05] MEDS: QUEtiapine FUMARATE 100 MG TABLET (FP) PO SCH (22:43)
[2020-06-05] MEDS: THIAMINE HCL 100 MG TABLET (FP) PO SCH (22:43)
[2020-06-05] MEDS: busPIRone HCL 10 MG TABLET (FP) PO SCH (22:44)
[2020-06-06] MEDS: chlordiazePOXIDE HCL 25 MG CAPSULE PO SCH ×4 (06:56→22:33)
[2020-06-06] MEDS: busPIRone HCL 10 MG TABLET (FP) PO SCH ×3 (07:01→22:34)
[2020-06-06] MEDS: DIVALPROEX SODIUM 500 MG TABLET E.C. PO SCH ×2 (10:47→22:32)
[2020-06-06] MEDS: FLUTICASONE PROP 0.05% 16 GM NASAL SPRAY NS SCH (10:47)
[2020-06-06] MEDS: levETIRAcetam 500 MG TABLET (FP) PO SCH ×4 (10:47→23:33)
[2020-06-06] MEDS: PRENATAL VITAMINS W/ FOLIC ACID TABLET (FP) PO SCH (10:48)
[2020-06-06] MEDS: NICOTINE 14 MG/24 HOURS TOPICAL PATCH TD SCH (10:48)
[2020-06-06] MEDS: OXcarbazepine 300 MG TABLET (UD) PO SCH ×2 (12:31→22:33)
[2020-06-06] MEDS: QUEtiapine FUMARATE 100 MG TABLET (FP) PO SCH (22:32)
[2020-06-06] MEDS: THIAMINE HCL 100 MG TABLET (FP) PO SCH (22:33)
[2020-06-06] MEDS: MELATONIN 5 MG TABLETS PO SCH (23:34)
[2020-06-07] MEDS ORDERED: chlordiazePOXIDE HCL 10 MG CAPSULE PO PRN
[2020-06-07] MEDS: chlordiazePOXIDE HCL 10 MG CAPSULE PO SCH ×2 (06:00→11:35)
[2020-06-07] MEDS: busPIRone HCL 10 MG TABLET (FP) PO SCH (06:02)
[2020-06-07 09:32] VITALS: BP 113/58; PULSE 76; TEMP 98.6
[2020-06-07] MEDS: levETIRAcetam 500 MG TABLET (FP) PO SCH ×2 (11:35)
[2020-06-07] MEDS: FLUTICASONE PROP 0.05% 16 GM NASAL SPRAY NS SCH (11:35)
[2020-06-07] MEDS: DIVALPROEX SODIUM 500 MG TABLET E.C. PO SCH (11:35)
[2020-06-08] MEDS ORDERED: chlordiazePOXIDE HCL 10 MG CAPSULE PO SCH (05:00)
[2020-06-09] MEDS ORDERED: chlordiazePOXIDE HCL 10 MG CAPSULE PO ONE (05:00)
== END 2020-06-07 11:56 | disposition left against medical advice (07) | DRG 774 ==
LOC: YASAS 11:35 → Y6N 06-05 09:12
PROVIDERS: ADMIT Allergy & Immunology; ATTEND Allergy & Immunology
PROC: HZ2ZZZZ Detoxification Services for Substance Abuse Treatment (ICD-10-PCS; principal; 2020-06-05)
DX: F10.230 Alcohol dependence with withdrawal, uncomplicated (principal); F14.20 Cocaine dependence, uncomplicated; F17.210 Nicotine dependence, cigarettes, uncomplicated; F19.282 Other psychoactive substance dependence with psychoactive substance-induced sleep disorder; F19.280 Other psychoactive substance dependence with psychoactive substance-induced anxiety disorder; F19.24 Other psychoactive substance dependence with psychoactive substance-induced mood disorder; F41.1 Generalized anxiety disorder; F43.10 Post-traumatic stress disorder, unspecified; F60.3 Borderline personality disorder; F31.9 Bipolar disorder, unspecified; Z21 Asymptomatic human immunodeficiency virus [HIV] infection status; G40.909 Epilepsy, unspecified, not intractable, without status epilepticus; Z62.810 Personal history of physical and sexual abuse in childhood; Z91.410 Personal history of adult physical and sexual abuse; Z87.09 Personal history of other diseases of the respiratory system; Z91.5 Personal history of self-harm; Z88.0 Allergy status to penicillin; Z91.19 Patient's noncompliance with other medical treatment and regimen; F91.8 Other conduct disorders
CPT/HCPCS: 36415; 80053; 80164; 80177; 81025; 85027; 86780; 93005; 93010; C9803; U0003; U0005